=== PATIENT | male | born 1965 | race African-American/Black ===

== ENCOUNTER 2017-09-24 08:19 | Emergency (ER) | payer OTHER ==
--- OUTSIDE RECORDS SUMMARY | 2017-09-24 08:21 | XMS REPORT | Clinical Summary ---
:1965 Author Organization [facility] Address [address] [place] [address] Care Team Providers Name Role Phone Wade Zepeda DO Primary Care Provider Allergies No Known Allergies Current Medications Not on file Active Problems Problem Noted Date MDD (major depressive disorder), recurrent, severe, with psychosis 06/07/2016 Social History Tobacco Use Types Packs/Day Years Used Date Never Smoker Alcohol Use Drinks/Week oz/Week Comments Yes 12 Cans of beer 7.2 daily Sex Assigned at Date Recorded Not on file Last Filed Vital Signs Not on file Plan of Treatment Not on file Results Not on fileafter 09/23/2016 Insurance Payer Benefit Plan / Group Subscriber ID Type Phone Address AETNA AETNA HMO,POS,EPO, MC/EC xxxxxxxxx HMO CVCP CVCP AETNA xxxxxxxxx PPO [address] [facility], [address] [place] [address] Home: [address] [phone] [id number]
[2017-09-24 09:08] LABS: Absolute Lymphocytes (CBC) 1.5 K/uL (0.7-4.9); Absolute Monocytes 0.6 K/uL (0.1-1.3); Absolute Neutrophil 5.7 K/uL (1.8-8.0); Basophils % 0.5 % (0-1.3); Eosinophils % 0.4 % (0-4.4); Lymphocytes % 19.1 % (15.3-44.8); MCH 30.1 pg (27.0-35.0); MCV 88.7 fL (80-100); MPV 7.4 fL (7.6-11.3); Monocytes % 7.4 % (3.3-12.3); RBC Red Blood Cell Count 5.42 M/uL (4.33-5.43)
[2017-09-24] MEDS ORDERED: ONDANSETRON 4 MG/2 ML VIAL ONE (09:19)
[2017-09-24] MEDS ORDERED: FAMOTIDINE 20 MG/2 ML VIAL IV ONE (09:19)
[2017-09-24] MEDS ORDERED: NA CHLORIDE 0.9% 1,000 ML ONE (09:19)
[2017-09-24 09:30] LABS: Glomerular Filtration Rate > 60 mL/min (>60)
[2017-09-24 09:32] LABS: Potassium 3.4 mEq/L (3.6-5.0)
[2017-09-24 09:39] LABS: Albumin 4.6 g/dL (3.2-5.5); Bilirubin Direct 0.1 mg/dL (0-0.2); Magnesium 2.3 mg/dL (1.8-2.5); Protein, Total 8.3 g/dL (6.0-8.3)
[2017-09-24 10:05] LABS: Urine Blood TRACE (NEG); Urine Glucose NEGATIVE (NEG); Urine Protein 1+ (NEG); Urine Specific Gravity >1.030 (1.005-1.030); Urine pH 6.5 (5.0-7.0)
[2017-09-24 10:38] LABS: Urine Bacteria <20 /HPF (NONE SEEN); Urine Culture Reflex Order NOT NEEDED; Urine Mucus 3+ /HPF (NONE SEEN); Urine RBC <5 /HPF (NONE SEEN)
--- NOTE | 2017-09-24 11:05 | ER ---
Nurse's Notes [facility] Name: Riaz Nguyen Age: 52 yrs Sex: Male : 1965 Arrival Date: 09/24/2017 Time: 08:22 Bed 16 Private MD: Wade Zepeda H Diagnosis: Nausea and vomiting;Lower abdominal pain, unspecified Presentation: 09/24 08:30 Presenting complaint: Patient states: "I was here a few days ago for my stomach and I lk1 cant hold anything down. I got some pills, but they aren't helping. I have sharp pains in the left side of my stomach and I am starting to get dizzy.". Transition of care: patient was not received from another setting of care. Onset of symptoms was September 19, 2017. Care prior to arrival: None. 08:30 Method Of Arrival: Ambulatory lk1 08:30 Acuity: MATT 3 lk1 Triage Assessment: 08:32 General: Appears in no apparent distress. Behavior is calm, cooperative, appropriate lk1 for age. Pain: Complains of pain in left upper quadrant Pain currently is 8 out of 10 on a pain scale. GI: Reports diarrhea, nausea, vomiting. Historical: - Allergies: 08:32 No Known Allergies; lk1 - Home Meds: 08:53 aspirin 81 mg Oral chew 1 tab once daily [Active]; atorvastatin 10 mg Oral tab 1 tab hj once daily [Active]; Latuda 60 mg Oral tab [Active]; Nexium Oral once daily [Active]; Prilosec Oral once daily [Active]; sertraline 100 mg Oral tab 1.5 tabs once daily [Active]; trazodone 100 mg Oral tab 1 tab as needed [Active]; - PMHx: 08:32 Prostate Cancer; Hypertension; High Cholesterol; Depression; lk1 - PSHx: 08:32 prostectomy; lk1 - Immunization history:: Adult Immunizations up to date. - Social history:: Smoking status: Patient/guardian denies using tobacco. Screenin:51 Abuse screen: Denies threats or abuse. Denies injuries from another. Nutritional hj screening: No deficits noted. Tuberculosis screening: No symptoms or risk factors identified. Fall Risk None identified. Assessment: 08:50 General: Appears in no apparent distress. uncomfortable, Behavior is calm, cooperative, hj appropriate for age. Pain: Complains of pain in left upper quadrant and left lower quadrant. Neuro: Level of Consciousness is awake, alert, obeys commands, Oriented to person, place, time, situation. Cardiovascular: Capillary refill < 3 seconds Patient's skin is warm and dry. Respiratory: Airway is patent Respiratory effort is even, unlabored, Respiratory pattern is regular, symmetrical. GI: Bowel sounds present X 4 quads. Abd is soft. : No signs and/or symptoms were reported regarding the genitourinary system. EENT: No signs and/or symptoms were reported regarding the EENT system. Derm: No signs and/or symptoms reported regarding the dermatologic system. Musculoskeletal: No signs and/or symptoms reported regarding the musculoskeletal system. 09:17 Reassessment: Patient and/or family updated on plan of care and expected duration. Pain hj level reassessed. Patient is alert, oriented x 3, equal unlabored respirations, skin warm/dry/pink. awaiting results;. 10:36 Reassessment: tolerated PO challenge;. hj Vital Signs: 08:32 BP 119 / 88; Pulse 79; Resp 15; Temp 97.3(TE); Pulse Ox 98% on R/A; Weight 102.06 kg lk1 (R); Height 6 ft. 3 in. (190.50 cm) (R); Pain 8/10; 10:09 BP 120 / 85; Pulse 85; Resp 18; Pulse Ox 100% on R/A; hj 11:45 BP 130 / 82; Pulse 82; Resp 18; Pulse Ox 100% on R/A; hj 08:32 Body Mass Index 28.12 (102.06 kg, 190.50 cm) lk1 ED Course: 08:22 Patient arrived in ED. rg4 08:22 Wade Zepeda DO is Private Physician. rg4 08:31 Triage completed. lk1 08:32 Arm band placed on left wrist. lk1 08:35 Ravi Talamantes PA is PHCP. cp 08:35 Rodrick Jaramillo MD is Attending Physician. cp 08:39 Patrick Harry RN is Primary Nurse. hj 08:51 Patient has correct armband on for positive identification. Placed in gown. Bed in low hj position. Call light in reach. Side rails up X 1. 08:53 Initial lab(s) drawn, by ny, Urine collected:. Inserted saline lock: 22 gauge in left hj forearm, using aseptic technique. Blood collected. 09:05 Urine collected: clean catch specimen, cloudy. mh5 10:05 X-ray completed. Patient tolerated procedure well. Patient moved back from radiology. jb2 10:15 XRAY Abdomen Acute Series In Process Unspecified. EDMS 11:04 Corby Hedrick MD is Referral Physician. cp 11:45 No provider procedures requiring assistance completed. IV discontinued, intact, hj bleeding controlled, No redness/swelling at site. Pressure dressing applied. Administered Medications: 08:55 Drug: NS 0.9% 1000 ml Route: IV; Rate: 1 bolus; Site: left forearm; hj 11:46 Follow up: IV Status: Completed infusion hj 08:55 Drug: Zofran 4 mg Route: IVP; Site: left forearm; hj 09:20 Follow up: Response: No adverse reaction hj 08:55 Drug: Pepcid 20 mg Route: IVP; Site: left forearm; hj 09:20 Follow up: Response: No adverse reaction Outcome: 11:04 Discharge ordered by MD. cp 11:45 Discharged to home ambulatory. hj 11:45 Condition: stable 11:45 Discharge instructions given to patient, Instructed on discharge instructions, follow up and referral plans. medication usage, Demonstrated understanding of instructions, follow-up care, medications, Prescriptions given X 4. 11:48 Patient left the ED. Signatures: Dispatcher [employer] EDPR Angel Judd jb2 Patrick Harry RN RN Ravi Thorpe PA PA cp Kluge, Leah RN RN lk1 Jammie Alexander Maria 5
--- NOTE | 2017-09-24 11:05 | EDPHYS ---
Physician Documentation [facility] Name: Riaz Nguyen Age: 52 yrs Sex: Male : 1965 Arrival Date: 09/24/2017 Time: 08:22 Bed 16 Private MD: Wade Zepeda H ED Physician Rodrick Jaramillo HPI: 09/24 08:51 This 52 yrs old Black Male presents to ER via Ambulatory with complaints of Abdominal cp Pain. 08:51 The patient presents with abdominal pain in the left lower quadrant. Onset: The cp symptoms/episode began/occurred last week. Associated signs and symptoms: Pertinent positives: constipation, nausea, vomiting, left lower back pain. Historical: - Allergies: 08:32 No Known Allergies; lk1 - Home Meds: 08:53 aspirin 81 mg Oral chew 1 tab once daily [Active]; atorvastatin 10 mg Oral tab 1 tab hj once daily [Active]; Latuda 60 mg Oral tab [Active]; Nexium Oral once daily [Active]; Prilosec Oral once daily [Active]; sertraline 100 mg Oral tab 1.5 tabs once daily [Active]; trazodone 100 mg Oral tab 1 tab as needed [Active]; - PMHx: 08:32 Prostate Cancer; Hypertension; High Cholesterol; Depression; lk1 - PSHx: 08:32 prostectomy; lk1 - Immunization history:: Adult Immunizations up to date. - Social history:: Smoking status: Patient/guardian denies using tobacco. ROS: 09:00 Constitutional: Negative for body aches, chills, fever, poor PO intake. cp 09:00 Eyes: Negative for injury, pain, redness, and discharge. cp 09:00 ENT: Negative for injury, pain, and discharge, Cardiovascular: Negative for chest pain, cp palpitations, and edema, Respiratory: Negative for shortness of breath, cough, wheezing, and pleuritic chest pain. 09:00 Abdomen/GI: Positive for abdominal pain, constipation, Negative for diarrhea, black/tarry stool, rectal bleeding. 09:00 Back: Positive for pain at rest, of the left low back. 09:00 : Negative for urinary symptoms, testicular pain 09:00 Skin: Negative for cellulitis, rash. 09:00 All other systems are negative. Exam: 09:08 Constitutional: The patient appears in no acute distress, alert, awake, cp non-diaphoretic, non-toxic, well developed, well nourished. 09:08 Head/Face: Normocephalic, atraumatic. cp 09:08 Eyes: Periorbital structures: appear normal, Conjunctiva: normal, no exudate, no cp injection, Sclera: no appreciated abnormality. 09:08 ENT: External ear(s): are unremarkable, Nose: is normal, Mouth: Lips: moist, Oral mucosa: moist, Posterior pharynx: is normal, airway is patent, no erythema, no exudate, Voice: is normal. 09:08 Chest/axilla: Inspection: normal, Palpation: is normal, no crepitus, no tenderness. 09:08 Cardiovascular: Rate: normal, Rhythm: regular, Edema: is not appreciated, JVD: is not appreciated. 09:08 Respiratory: the patient does not display signs of respiratory distress, Respirations: normal, no use of accessory muscles, no retractions, no splinting, no tachypnea, labored breathing, is not present, Breath sounds: are clear throughout, no decreased breath sounds, no stridor, no wheezing. 09:08 Abdomen/GI: Inspection: abdomen appears normal, Bowel sounds: active, all quadrants, Palpation: soft, in all quadrants, moderate abdominal tenderness, in the left lower quadrant, rebound tenderness, is not appreciated, voluntary guarding, is elicited in the left lower quadrant, involuntary guarding, is not appreciated. 09:08 Back: pain, of the left low back. 09:08 Skin: cellulitis, is not appreciated, no rash present. Vital Signs: 08:32 BP 119 / 88; Pulse 79; Resp 15; Temp 97.3(TE); Pulse Ox 98% on R/A; Weight 102.06 kg lk1 (R); Height 6 ft. 3 in. (190.50 cm) (R); Pain 8/10; 10:09 BP 120 / 85; Pulse 85; Resp 18; Pulse Ox 100% on R/A; hj 11:45 BP 130 / 82; Pulse 82; Resp 18; Pulse Ox 100% on R/A; hj 08:32 Body Mass Index 28.12 (102.06 kg, 190.50 cm) lk1 MDM: 08:35 Patient medically screened. cp 09:00 Differential diagnosis: bowel obstruction, diverticulitis, gastritis, Ureterolithiasis, cp urinary tract infection. 11:00 Data reviewed: vital signs, nurses notes, old medical records, lab results, radiology cp report of CT abdomen/pelvis and notes from previous ED visit lab test result(s), radiologic studies, plain films. 11:00 Counseling: I had a detailed discussion with the patient and/or guardian regarding: the cp historical points, exam findings, and any diagnostic results supporting the discharge/admit diagnosis, lab results, radiology results, the need for outpatient follow up, a assistant health educator, to return to the emergency department if symptoms worsen or persist or if there are any questions or concerns that arise at home. 11:00 Response to treatment: the patient's symptoms have mildly improved after treatment, and cp as a result, I will discharge patient. Special discussion: Based on the patient's Hx, exam, and Dx evaluation, there is no indication for emergent surgery or inpatient Tx. It is understood by the patient/guardian that if the Sx's persist or worsen they need to return immediately for re-evaluation. 09/24 08:55 Order name: Amylase, Serum; Complete Time: 09:40 cp 09/24 08:55 Order name: Basic Metabolic Panel; Complete Time: 09:40 cp 09/24 10:44 Interpretation: Normal except: K 3.4; CL 99; GFR 86. cp 09/24 08:55 Order name: CBC with Diff; Complete Time: 09:27 cp 09/24 09:27 Interpretation: Normal except: MPV 7.4. cp 09/24 08:55 Order name: Creatinine for Radiology; Complete Time: 09:38 cp 09/24 08:55 Order name: Hepatic Function; Complete Time: 09:40 cp 09/24 08:55 Order name: Lipase; Complete Time: 09:40 cp 09/24 08:55 Order name: Urine Microscopic Only; Complete Time: 10:44 cp 09/24 08:55 Order name: IV Saline Lock; Complete Time: 08:57 cp 09/24 08:55 Order name: Magnesium; Complete Time: 09:40 cp 09/24 09:14 Order name: Urine Dipstick--Ancillary (enter results); Complete Time: 10:25 bd 09/24 10:25 Interpretation: Normal except: USPGR >1.030; UKET 1+; UBLD TRACE; UPROT 1+. cp 09/24 09:41 Order name: XRAY Abdomen Acute Series cp 09/24 08:55 Order name: Labs collected and sent; Complete Time: 08:57 cp 09/24 08:55 Order name: Urine Dipstick-Ancillary (obtain specimen); Complete Time: 08:57 cp 09/24 10:26 Order name: PO challenge; Complete Time: 10:29 cp Administered Medications: 08:55 Drug: NS 0.9% 1000 ml Route: IV; Rate: 1 bolus; Site: left forearm; hj 11:46 Follow up: IV Status: Completed infusion hj 08:55 Drug: Zofran 4 mg Route: IVP; Site: left forearm; hj 09:20 Follow up: Response: No adverse reaction hj 08:55 Drug: Pepcid 20 mg Route: IVP; Site: left forearm; hj 09:20 Follow up: Response: No adverse reaction Disposition: 14:36 Co-signature as Attending Physician, Rodrick Jaramillo MD. rn Disposition: 09/24/17 11:04 Discharged to Home. Impression: Nausea and vomiting, Lower abdominal pain, unspecified. - Condition is Stable. - Discharge Instructions: Abdominal Pain, Adult, Nausea and Vomiting. - Prescriptions for Bentyl 20 mg Oral Tablet - take 1 tablet by ORAL route every 6 hours As needed; 20 tablet. Pepcid 20 mg Oral Tablet - take 1 tablet by ORAL route every 12 hours for 10 days; 20 tablet. Phenergan 25 mg Rectal Suppository - insert 1 suppository by RECTAL route every 6 hours As needed; 12 suppository. promethazine 25 mg Oral Tablet - take 1 tablet by ORAL route every 6 hours As needed; 20 tablet. - Medication Reconciliation Form, Thank You Letter, Antibiotic Education, Prescription Opioid Use form. - Follow up: Corby Hedrick MD; When: 1 - 2 days; Reason: Recheck today's complaints. - Problem is new. - Symptoms have improved. Signatures: Dispatcher [employer] EDMS Rodrick Jaramillo MD MD rn Joaquin, Henry RN CAREN hj Ravi Talamantes PA PA cp Kluge, Leah RN RN lk1 Corrections: (The following items were deleted from the chart) 10:44 09:38 Normal except: K 3.4; CL 99. cp cp
--- NOTE | 2017-09-24 11:34 | RAD REPORT ---
EXAM DESCRIPTION: RAD - Abdomen Acute Series - 09/24/2017 10:15 am CLINICAL HISTORY: Constipation, abdominal pain, vomiting COMPARISON: [facility] July 2016, CT imaging September 22 FINDINGS: Lungs are clear. Heart size and pulmonary vasculature are normal. No pleural effusion, pne umothorax or other acute cardiopulmonary process seen. Bowel gas pattern is nonspecific. No bowel obstruction, free air or other acute findings. No suspicio us calcifications. No other suspicious for significant findings. IMPRESSION: No failure, infiltrate or other acute chest finding. Nonspecific bowel gas pattern with no obstruction, free air or other worrisome finding.
[2017-09-24 12:02] VITALS: O2SAT 100
[2017-09-24 12:03] VITALS: TEMP 97.3
[2017-09-24 12:05] VITALS: BP 130/82
== END 2017-09-24 11:48 | disposition home or self-care (01) ==
LOC: ER 08:19
DX: F32.9 Major depressive disorder, single episode, unspecified; I10 Essential (primary) hypertension; Z85.46 Personal history of malignant neoplasm of prostate; Z79.82 Long term (current) use of aspirin; E78.00 Pure hypercholesterolemia, unspecified; R10.32 Left lower quadrant pain
CPT/HCPCS: 36415; 74022; 80048; 80076; 81003; 81015; 82150; 83690; 83735; 85025; 96361; 96374; 96375; 99284; J2405; J7030

== ENCOUNTER 2019-08-07 08:28 | Observation (INO) | payer OTHER ==
[2019-08-07 09:37] LABS: Protime INR 1.14
[2019-08-07 09:38] LABS: Absolute Lymphocytes (CBC) 1.2 K/uL (0.7-4.9); Basophils % 0.5 % (0-1.3); Hematocrit 45.9 % (39.6-49.0); Lymphocytes % 15.1 % (15.3-44.8); MPV 7.8 fL (7.6-11.3); RBC Red Blood Cell Count 5.02 M/uL (4.33-5.43)
[2019-08-07 09:54] LABS: ALT/SGPT 39 U/L (12-78); AST/SGOT 34 U/L (15-37); Albumin 3.7 g/dL (3.4-5.0); Alkaline Phosphatase 75 U/L (45-117); BUN Blood Urea Nitrogen 16 mg/dL (7-18); Bicarbonate 25 mmol/L (21-32); Bilirubin Direct 0.1 mg/dL (0-0.2); Bilirubin Total 0.6 mg/dL (0.2-1.0); Glucose Level 101 mg/dL (74-106); NT PRO-BNP 6 pg/mL (<125); Potassium 3.7 mmol/L (3.5-5.1); Protein, Total 7.9 g/dL (6.4-8.2); Sodium Level 137 mmol/L (136-145); Troponin (Emerg Dept Use Only) < 0.02 ng/mL (0.0-0.045)
--- NOTE | 2019-08-07 10:05 | EDPHYS ---
Physician Documentation [facility] Name: Riaz Nguyen Age: 53 yrs Sex: Male : 1965 Arrival Date: 08/07/2019 Time: 08:29 Bed 2 Private MD: ED Physician Mikaela Israel HPI: 08/07 10:01 This 53 yrs old Black Male presents to ER via Ambulatory with complaints of Chest Pain, ma2 Shortness Of Breath, Cough. 10:02 The patient or guardian reports chest pain that is located primarily in the substernal ma2 area. Onset: acutely. Associated signs and symptoms: Pertinent negatives: cough, dizziness, lower extremity pain, lightheadedness. The chest pain is described as aching, a heaviness. Severity of pain: At its worst the pain was moderate in the emergency department the pain is unchanged. The patient has not experienced similar symptoms in the past. Historical: - Allergies: 08:42 No Known Allergies; iw - Home Meds: 08:42 aspirin 81 mg Oral chew 1 tab once daily [Active]; atorvastatin 10 mg Oral tab 1 tab iw once daily [Active]; losartan oral oral [Active]; - PMHx: 08:42 Depression; High Cholesterol; Hypertension; Prostate Cancer; iw - PSHx: 08:42 prostectomy; iw - Immunization history:: Adult Immunizations not up to date. - Coronavirus screen:: The patient has NOT traveled to [place], [place], or [place] in the past 14 days. Proceed with normal triage process as indicated. - Social history:: Patient/guardian denies using alcohol, street drugs, The patient lives with family, Smoking status: Patient denies any tobacco usage or history of. - Family history:: not pertinent. - Ebola Screening: : Patient negative for fever greater than or equal to 101.5 degrees Fahrenheit, and additional compatible Ebola Virus Disease symptoms Patient denies exposure to infectious person Patient denies travel to an Ebola-affected area in the 21 days before illness onset No symptoms or risks identified at this time. ROS: 10:02 Constitutional: Negative for fever, chills, and weight loss. ma2 10:02 All other systems are negative. Exam: 10:02 Constitutional: This is a well developed, well nourished patient who is awake, alert, ma2 and in no acute distress. Head/Face: Normocephalic, atraumatic. Eyes: Pupils equal round and reactive to light, extra-ocular motions intact. Lids and lashes normal. Conjunctiva and sclera are non-icteric and not injected. Cornea within normal limits. Periorbital areas with no swelling, redness, or edema. Neck: Trachea midline, no thyromegaly or masses palpated, and no cervical lymphadenopathy. Supple, full range of motion without nuchal rigidity, or vertebral point tenderness. No Meningismus. Chest/axilla: Normal chest wall appearance and motion. Nontender with no deformity. No lesions are appreciated. Cardiovascular: Regular rate and rhythm with a normal S1 and S2. No gallops, murmurs, or rubs. Normal PMI, no JVD. No pulse deficits. Respiratory: Lungs have equal breath sounds bilaterally, clear to auscultation and percussion. No rales, rhonchi or wheezes noted. No increased work of breathing, no retractions or nasal flaring. Abdomen/GI: Soft, non-tender, with normal bowel sounds. No distension or tympany. No guarding or rebound. No evidence of tenderness throughout. MS/ Extremity: Pulses equal, no cyanosis. Neurovascular intact. Full, normal range of motion. Neuro: Awake and alert, GCS 15, oriented to person, place, time, and situation. Cranial nerves II-XII grossly intact. Motor strength 5/5 in all extremities. Sensory grossly intact. Cerebellar exam normal. Normal gait. Vital Signs: 08:42 BP 126 / 90; Pulse 101; Resp 18 S; Temp 97.1; Pulse Ox 96% on R/A; Weight 108.86 kg; iw Height 6 ft. 3 in. (190.50 cm); Pain 7/10; 09:28 BP 113 / 87; Pulse 91; Resp 20; Pulse Ox 96% ; sv 10:52 BP 128 / 94; Pulse 89; Resp 21; Pulse Ox 95% on R/A; ah 11:40 BP 109 / 80; Pulse 88; Resp 19; Temp 97.9; Pulse Ox 94% on NC; ah 12:24 BP 114 / 5; ah 08:42 Body Mass Index 30.00 (108.86 kg, 190.50 cm) iw MDM: 08:45 Patient medically screened. ma2 10:02 Differential diagnosis: gastritis, gastroesophageal reflux disease (GERD), pleurisy, ma2 pneumonia, stable angina, unstable angina. HEART Score: History: Moderately Suspicious (1), ECG: Non specific repolarization disturbance / LBTB / PM (1), Age: > 45 and < 65 years (1), Risk Factors: > or = 3 Risk factors for atherosclerotic disease (2), Troponin: < or = 1 x Normal Limit (0), Total Score = 5. The patient was given aspirin in the Emergency Department. Data reviewed: vital signs, nurses notes. Data reviewed: lab test result(s), EKG, radiologic studies. Counseling: I had a detailed discussion with the patient and/or guardian regarding: the historical points, exam findings, and any diagnostic results supporting the discharge/admit diagnosis, the presence of at least one elevated blood pressure reading (>120/80) during this emergency department visit, the need for outpatient follow up. 08/07 08:54 Order name: Basic Metabolic Panel; Complete Time: 09:59 ma2 08/07 08:54 Order name: CBC with Diff; Complete Time: 09:59 ma2 08/07 08:54 Order name: LFT's; Complete Time: 09:59 ma2 08/07 08:54 Order name: Magnesium; Complete Time: 09:59 ma2 08/07 08:54 Order name: NT PRO-BNP; Complete Time: 09:59 ma08/07 08:54 Order name: PT-INR; Complete Time: 09:59 ma2 08/07 08:54 Order name: Troponin (emerg Dept Use Only); Complete Time: 09:59 ma2 08/07 08:54 Order name: XRAY Chest (1 view) ma2 08/07 08:54 Order name: EKG; Complete Time: 08:56 ma2 08/07 10:12 Order name: Flu ma2 08/07 11:02 Order name: Urine Dipstick--Ancillary (enter results) eb 08/07 11:05 Order name: Urine Dipstick-Ancillary EDMS 08/07 08:54 Order name: Cardiac monitoring; Complete Time: 09:02 ma2 08/07 08:54 Order name: EKG - Nurse/Tech; Complete Time: 09:02 ma2 08/07 08:54 Order name: IV Saline Lock; Complete Time: 09:20 ma2 08/07 08:54 Order name: Labs collected and sent; Complete Time: 09:21 [facility] 08/07 08:54 Order name: O2 Per Protocol; Complete Time: : [facility] 08/07 08:54 Order name: O2 Sat Monitoring; Complete Time: : [facility] Administered Medications: 10:07 Drug: AZITHromycin 500 mg Route: PO; 11:00 Follow up: Response: No adverse reaction sv 11:45 Follow up: Response: No adverse reaction ah 10:07 Drug: Aspirin Chewable Tablet 324 mg Route: PO; 11:00 Follow up: Response: No adverse reaction sv 12:24 Follow up: BP 114 / 5; Response: No adverse reaction Disposition: 08/07/19 10:04 Hospitalization ordered by Supriya Schwarz for Observation. Preliminary diagnosis is Chest pain, unspecified. - Bed requested for Telemetry/MedSurg (observation). - Status is Observation. ah - Condition is Stable. - Problem is new. - Symptoms are unchanged. Signatures: Dispatcher [employer] Blanca Sharp RN RN iw Alzahri, Mohammad, MD MD [facility] Ciarra Gee Amy, RN RN ah Verde, Stephanie RN Corrections: (The following items were deleted from the chart) 11:15 10:04 Hospitalization Ordered by Supriya Schwarz MD for Observation. Preliminary diagnosis eb is Chest pain, unspecified. Bed requested for Telemetry/MedSurg (observation). Status is Observation. Condition is Stable. Problem is new. Symptoms are unchanged. [facility] 11:32 11:15 08/07/2019 10:04 Hospitalization Ordered by Supriya Schwarz MD for Observation. eb Preliminary diagnosis is Chest pain, unspecified. Bed requested for Telemetry/MedSurg (observation). Status is Observation. Condition is Stable. Problem is new. Symptoms are unchanged. eb 12:26 11:32 08/07/2019 10:04 Hospitalization Ordered by Supriya Schwarz MD for Observation. ah Preliminary diagnosis is Chest pain, unspecified. Bed requested for Telemetry/MedSurg (observation). Status is Observation. Condition is Stable. Problem is new. Symptoms are unchanged. eb
--- NOTE | 2019-08-07 10:05 | ER ---
Nurse's Notes [facility] Name: Riaz gNuyen Age: 53 yrs Sex: Male : 1965 Arrival Date: 08/07/2019 Time: 08:29 Bed 2 Private MD: Diagnosis: Chest pain, unspecified Presentation: 08/07 08:39 Presenting complaint: Patient states: c/o non radiating midsternal chest pain since iw last night, pt has bad cough and SOB that started last night, feels tired, no fever, c/o burning pain with cough, pain in chest feels like tight burning pain, hx of mild heart attack 17 years ago. Transition of care: patient was not received from another setting of care. Onset of symptoms was August 06, 2019. Risk Assessment: Do you want to hurt yourself or someone else? Patient reports no desire to harm self or others. Initial Sepsis Screen: Does the patient meet any 2 criteria? No. Patient's initial sepsis screen is negative. Does the patient have a suspected source of infection? No. Patient's initial sepsis screen is negative. Care prior to arrival: None. 08:39 Method Of Arrival: Ambulatory iw 08:39 Acuity: MATT 2 iw Historical: - Allergies: 08:42 No Known Allergies; iw - Home Meds: 08:42 aspirin 81 mg Oral chew 1 tab once daily [Active]; atorvastatin 10 mg Oral tab 1 tab iw once daily [Active]; losartan oral oral [Active]; - PMHx: 08:42 Depression; High Cholesterol; Hypertension; Prostate Cancer; iw - PSHx: 08:42 prostectomy; iw - Immunization history:: Adult Immunizations not up to date. - Coronavirus screen:: The patient has NOT traveled to [place], [place], or [place] in the past 14 days. Proceed with normal triage process as indicated. - Social history:: Patient/guardian denies using alcohol, street drugs, The patient lives with family, Smoking status: Patient denies any tobacco usage or history of. - Family history:: not pertinent. - Ebola Screening: : Patient negative for fever greater than or equal to 101.5 degrees Fahrenheit, and additional compatible Ebola Virus Disease symptoms Patient denies exposure to infectious person Patient denies travel to an Ebola-affected area in the 21 days before illness onset No symptoms or risks identified at this time. Screenin:36 Abuse screen: Denies threats or abuse. Nutritional screening: No deficits noted. Tuberculosis screening: No symptoms or risk factors identified. Fall Risk None identified. Assessment: 08:58 General: Appears uncomfortable, Behavior is calm, cooperative, appropriate for age. Pain: Complains of pain in mid-sternal area Pain does not radiate. Pain currently is 7 out of 10 on a pain scale. Quality of pain is described as pressure, squeezing, Pain began 2-3 days ago. gradually getting worse Is intermittent, Alleviated by nothing. 08:58 Neuro: Level of Consciousness is awake, alert, obeys commands, Oriented to person, place, time, situation, Appropriate for age Support Architect are equal bilaterally Speech is normal, Cardiovascular: Reports chest pain, shortness of breath, Heart tones S1 S2 present Capillary refill < 3 seconds Patient's skin is warm and dry. Pulses are palpable in right radial artery, right dorsalis pedis artery, left radial artery and left dorsalis pedis artery Rhythm is sinus rhythm. Respiratory: Airway is patent Respiratory effort is even, Respiratory pattern is tachypnea Breath sounds are clear bilaterally. GI: Abdomen is non-distended, Bowel sounds present X 4 quads. Abd is soft and non tender X 4 quads. : No signs and/or symptoms were reported regarding the genitourinary system. Derm: Skin is intact, is healthy with good turgor, Skin is dry, Skin is pink, warm \T\ dry. normal, Skin temperature is warm. 10:00 Reassessment: Patient appears in no apparent distress at this time. Patient and/or family updated on plan of care and expected duration. Pain level reassessed. Patient is alert, oriented x 3, equal unlabored respirations, skin warm/dry/pink. 11:40 Reassessment: Attempted to call report, nurse unavailable. 11:49 Reassessment: Patient appears in no apparent distress at this time. Patient and/or family updated on plan of care and expected duration. Pain level reassessed. Patient is alert, oriented x 3, equal unlabored respirations, skin warm/dry/pink. Vital Signs: 08:42 BP 126 / 90; Pulse 101; Resp 18 S; Temp 97.1; Pulse Ox 96% on R/A; Weight 108.86 kg; iw Height 6 ft. 3 in. (190.50 cm); Pain 7/10; 09:28 BP 113 / 87; Pulse 91; Resp 20; Pulse Ox 96% ; sv 10:52 BP 128 / 94; Pulse 89; Resp 21; Pulse Ox 95% on R/A; ah 11:40 BP 109 / 80; Pulse 88; Resp 19; Temp 97.9; Pulse Ox 94% on NC; ah 12:24 BP 114 / 5; ah 08:42 Body Mass Index 30.00 (108.86 kg, 190.50 cm) iw ED Course: 08:29 Patient arrived in ED. as 08:41 Triage completed. iw 08:42 Arm band placed on. iw 08:45 Mikaela Israel MD is Attending Physician. ma2 08:59 EKG done, by alarm installation technician. reviewed by Mikaela Israel MD. at1 09:00 Missed attempt(s): 22 gauge in right antecubital area. Bleeding controlled, band aid ah applied, catheter tip intact. 09:00 Missed attempt(s): 22 gauge in right wrist. Bleeding controlled, band aid applied, ah catheter tip intact. 09:01 Janis Goins, RN is Primary Nurse. sv 09:02 Patient has correct armband on for positive identification. Placed in gown. Bed in low sv position. Call light in reach. interactive media marketing strategist on. Pulse ox on. NIBP on. 09:15 Missed attempt(s): 22 gauge in left hand. Bleeding controlled, band aid applied, tw2 catheter tip intact. Inserted saline lock: 22 gauge in left forearm, using aseptic technique. Blood collected. 09:25 XRAY Chest (1 view) In Process Unspecified. EDMS 10:04 Supriya Schwarz MD is Hospitalizing Provider. ma2 10:26 Flu Sent. ah 11:30 Awaiting bed assignment. sv 11:43 Urine Dipstick--Ancillary (enter results) Sent. sv 11:44 No provider procedures requiring assistance completed. Patient admitted, IV remains in sv place. intact. 11:44 Oxygen administration via nasal cannula \T\ 2L/min. sv Administered Medications: 10:07 Drug: AZITHromycin 500 mg Route: PO; ah 11:00 Follow up: Response: No adverse reaction sv 11:45 Follow up: Response: No adverse reaction ah 10:07 Drug: Aspirin Chewable Tablet 324 mg Route: PO; 11:00 Follow up: Response: No adverse reaction sv 12:24 Follow up: BP 114 / 5; Response: No adverse reaction Outcome: 10:04 Decision to Hospitalize by Provider. essence 11:48 Admitted to Tele accompanied by tech, via stretcher, room 411, with oxygen, with chart, sv Report called to Janis FABIAN 11:48 Condition: stable 11:48 Instructed on the need for admit. 12:26 Patient left the ED. Signatures: Dispatcher [employer] Nat Washington, RN RN Agnieszka Leyva Irene, RN RN iw Yasmin Coleman, distillery manager EKG Tat1 Valerie Marie RN RN tw2 Mikaela Israel MD MD ma2 Janis Goins, RN RN Corrections: (The following items were deleted from the chart) 09:35 08:58 Pain: Complains of pain in mid-sternal area Pain does not radiate. [facility]
[2019-08-07] MEDS ORDERED: ASPIRIN 81 MG CHEWABLE TABLET ONE (10:06)
[2019-08-07] MEDS ORDERED: AZITHROMYCIN 250 MG TAB ONE (10:07)
--- NOTE | 2019-08-07 10:49 | RAD REPORT ---
EXAM DESCRIPTION: RAD - Chest Single View - 08/07/2019 9:23 am CLINICAL HISTORY: CHEST PAIN Chest pain. COMPARISON: Abdomen Acute Series dated 09/24/2017; Abdomen 1 View (KUB) dated 07/19/2016; Chest Single View dated 07/18/2016; CHEST PA AND LAT 2 VIEW dated 03/10/2012 FINDINGS: Portable technique limits examination quality. Hazy lung opacities are present the left lung base likely representing small area of pneumonia/infilt rate. The lungs are otherwise clear. The heart is upper limit normal in size. No displaced fractures.
[2019-08-07 11:04] LABS: Urine Blood TRACE (NEG); Urine Glucose NEGATIVE (NEG); Urine Protein NEGATIVE (NEG)
[2019-08-07 12:27] VITALS: BMI 29.9
[2019-08-07] MEDS ORDERED: ACETAMINOPHEN 500 MG TAB PO PRN (12:27)
[2019-08-07] MEDS ORDERED: MORPHINE 2 MG/ML SYR IV PRN (12:27)
[2019-08-07] MEDS ORDERED: NITROGLYCERIN 0.4 MG/TAB SL PRN (12:27)
--- NOTE | 2019-08-07 15:08 | EKG ---
Test Date: 2019-08-07 Test Time: 08:47:29 [employer]: CRUZ MEASUREMENT RESULTS: Intervals: Rate: 91 DE: 158 QRSD: 142 QT: 374 QTc: 460 Thompson: P: 31 DE: 158 QRS: -30 T: 22 INTERPRETIVE STATEMENTS: Normal sinus rhythm Left axis deviation Right bundle branch block Abnormal ECG Compared to ECG 09/27/2017 14:48:57 no significant change from previous ECG Electronically Signed On 08-07-19 15:07:25 [employer] REP by Juventino Goins
--- NOTE | 2019-08-07 15:09 | ECHO ---
HEIGHT: 6 ft 3 in WEIGHT: 240 lb 0 oz DATE OF STUDY: 08/07/[address]: Supriya Schwarz MD 2-DIMENSIONAL: YES M.MODE: YES DOPPLER: YES COLOR FLOW: YES TDS: NO PORTABLE: NO DEFINITY: NO BUBBLE STUDY: NO DIAGNOSIS: CHEST PAIN CARDIAC HISTORY: CATHERIZATION: NO SURGERY: NO PROSTHETIC VALVE: NO PACEMAKER: NO MEASUREMENTS (cm) DIASTOLIC (NORMALS) SYSTOLIC (NORMALS) IVSd 1.2 (0.6-1.2) LA Diam 3.8 (1.9-4.0) LVEF 68% LVIDd 3.9 (3.5-5.7) LVIDs 2.5 (2.0-3.5) %FS 38% LVPWd 1.3 (0.6-1.2) Ao Diam 2.9 (2.0-3.7) 2 DIMENSIONAL ASSESSMENT: RIGHT ATRIUM: NORMAL LEFT ATRIUM: NORMAL RIGHT VENTRICLE: NORMAL LEFT VENTRICLE: NORMAL TRICUSPID VALVE: NORMAL MITRAL VALVE: NORMAL PULMONIC VALVE: NORMAL AORTIC VALVE: NORMAL PERICARDIAL EFFUSION: NONE AORTIC ROOT: NORMAL LEFT VENTRICULAR WALL MOTION: NORMAL. DOPPLER/COLOR FLOW: PHYSIOLOGIC TRICUSPID REGURGITATION. NORMAL RIGHT VENTRICULAR SYSTOLIC PRESSURE. COMMENTS: NORMAL 2D ECHO WITH DOPPLER. TECHNOLOGIST: SONNY BOYLE
--- NOTE | 2019-08-07 19:37 | CON ---
History Of Present Illness: Mr. Nguyen is 53. He says about 15 years ago he had a heart attack, but he was not given any treatments. He sees Dr. Courtney. Had a heart cath or a stent or any of the usu al things that are given to people post SC. He started coughing 3 days ago. He is coughing up phleg m. He did not have cold or flu symptoms before and every time he coughs, it hurts. It actually hurt s quite a bit. He was wincing in pain when he coughed. He asked for some antibiotics. His physicia n asked him to come to the hospital and since then a chest x-ray reveals left lung base pneumonia. T he patient has not had a fever. He does not have an elevated white blood cell count. All of his car diac enzymes are normal. His EKG shows right bundle-branch block. No other abnormality. It is unch anged from an EKG several years ago. The patient takes atorvastatin, losartan, and hydrochlorothiazi de for hypertension and dyslipidemia. He does not have diabetes. Allergies: HE HAS NO ALLERGIES. Social History: He uses no tobacco, rare alcohol. No illegal drugs. Medications: He is now receiving azithromycin and ceftriaxone. Physical Examination: General: He is 6 feet 3 inches, 240 pounds. Alert, oriented, pleasant, not in distress. Lungs: Clear. Cardiac: Within normal limits. Abdomen: Soft. Extremities: Normal. Impression: This is not an acute coronary syndrome. I doubt if he has any significant coronary hear t disease. Certainly, nothing unstable enough. We follow his enzymes look good and his pain is better by tomorrow. He could be discharged and follow up with Dr. Courtney who sees him every 6 month s or so. TANIYA/JEREMY Voice ID: [id number] Report ID: [id number]
[2019-08-07] MEDS: METOPROLOL TAR 25 MG TAB PO SCH (20:11)
[2019-08-07 20:37] VITALS: O2SAT 96
[2019-08-07] MEDS ORDERED: ATORVASTATIN 10 MG TAB PO SCH (21:00)
--- NOTE | 2019-08-08 02:47 | HP ---
Date of Admission: 08/07/2019 Primary Care Physician: Dr. Zepeda. Chief Complaint: Chest pain and cough. History Of Present Illness: Patient is a 53-year-old male with past medical history of hypertension, hyperlipidemia, major depressive disorder, history of prior AR, comes in with chest pain of 3 days' duration along with some cough. Patient does report ill contact. Patient does report some shortness of breath as well. No significant sputum production. Symptoms are constant, moderate, progressivel y worsening. Patient's initial workup revealed normal white blood cell count. A flu screen was nega tive. Initial troponin and EKG were negative. The patient was given aspirin in the ER as well as az ithromycin. When seen in the ER, he was awake, alert, oriented x3. Past Medical History: Hypertension, hyperlipidemia, major depressive disorder, history of AR, prosta te cancer. Surgical History: Prostate surgery recently, currently cancer-free; right enucleation of the eye. Allergies: NO KNOWN DRUG ALLERGIES. Medications: List reviewed. Social History: Patient denies any tobacco use. Does drink alcohol occasionally. No illicit drug u se. 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 Family History: Mom of bone cancer. Father of prostate cancer. Review of Systems: 10-point systems reviewed, negative except as per HPI. Physical Examination: Vital Signs: Blood pressure 126/90, respirations 18, O2 96% on room air, pulse 101, temperature 97.1 . General: Awake, alert, oriented x3, obese male, in some mild distress, ill appearing. HEENT: Normocephalic, atraumatic. Pupil on the left eye is round and responds to light. Patient brewer s enucleation of the right eye with prosthesis in place. Oropharynx is clear. Conjunctivae are anic teric. Neck: Supple. No JVD. Trachea midline. CV: S1, S2. Sinus tachycardia. Peripheral pulses present. Respiratory: Diminished breath sounds, especially on the left. Some rhonchi heard. No wheezing or stridor. Gastrointestinal: Abdomen is soft, nontender, nondistended. Positive bowel sounds. No guarding or rigidity. Extremities: No clubbing, cyanosis, or edema. No calf tenderness. Neuro: Cranial nerves 2 through 12 intact grossly. No focal neurological deficits. Speech is baudilio l. Skin: No rashes. Normal skin turgor. Psych: Mood is okay. Affect is full. Insight and judgment are good. Laboratory Data: Urine is negative. Sodium 137, potassium 3.7, chloride 105, CO2 of 25, BUN 16, cre atinine , glucose 101, calcium 9.2, magnesium 2. Troponin less than 0.02. WBC 7.8, H and H 15.1 and 45.9, platelets 215, neutrophils 72%. INR 1.14. Influenza screen is negative. Echocardi ogram shows EF 68%, physiological tricuspid regurg. EKG shows normal sinus rhythm rate of 91 with le ft axis deviation, right bundle-branch block. Chest x-ray shows hazy lung opacities present in the l eft lung base, representing small area of pneumonia, infiltrate. Lungs otherwise clear. Heart baudilio l in size. No displaced fractures. Assessment: 53-year-old male with: 1.Chest pain, likely atypical, likely from pneumonia and pleuritic chest pain. Echocardiogram shows ejection fraction of 68%. There is no wall motion abnormality. 2.Left lung base pneumonia. We will start on IV antibiotics. Obtain blood cultures and sputum cult ure. Patient's flu screen is negative. 3.Right bundle-branch block. Cardiology has been consulted. Patient likely has history of old myoc ardial infarction. 4.Essential hypertension, stable. We will resume home medications as appropriate. 5.Hyperlipidemia. Continue statin. 6.Major depressive disorder, stable. 7.History of myocardial infarction. 8.Deep venous thrombosis prophylaxis with Lovenox. Plan: Admit patient to med/surg, place as observation. /JEREMY Voice ID: [id number]
[2019-08-08] MEDS: CETIRIZINE HCL 5 MG TABLET PO PRN ×2 (04:18→09:24)
[2019-08-08 05:54] LABS: Absolute Lymphocytes (CBC) 1.2 K/uL (0.7-4.9); Basophils % 0.8 % (0-1.3); Hematocrit 43.9 % (39.6-49.0); Lymphocytes % 36.7 % (15.3-44.8); RBC Red Blood Cell Count 4.83 M/uL (4.33-5.43)
[2019-08-08 06:59] LABS: BUN Blood Urea Nitrogen 12 mg/dL (7-18); Bicarbonate 29 mmol/L (21-32); Glucose Level 103 mg/dL (74-106); HDL Cholesterol 42 mg/dL (40-60); LDL Cholesterol, Calculated 71 (<130); Potassium 3.7 mmol/L (3.5-5.1); Sodium Level 137 mmol/L (136-145)
[2019-08-08 08:06] LABS: Blood Morphology Comment NOT SEEN (NOT SEEN); Platelet Estimate ADEQ
[2019-08-08 09:00] VITALS: BP 105/70; TEMP 97.1
[2019-08-08] MEDS ORDERED: LOSARTAN POTASSIUM 50 MG TABLET PO SCH (09:00)
[2019-08-08] MEDS ORDERED: AZITHROMYCIN IV 500 MG in NA CHLORIDE 0.9% 250 ML IVPB SCH (09:00)
[2019-08-08] MEDS ORDERED: lisinopriL 10 MG TAB PO SCH (09:00)
[2019-08-08] MEDS ORDERED: ENOXAPARIN 40 MG/0.4 ML SQ SCH (09:00)
[2019-08-08] MEDS ORDERED: CEFTRIAXONE/SWI 1gm 1 GM/10 ML SYR IVP SCH (09:00)
[2019-08-08] MEDS ORDERED: SOD CHLORIDE 0.65% NASAL SPRAY NAS SCH (09:00)
[2019-08-08] MEDS ORDERED: ASPIRIN EC 81 MG TAB PO SCH (09:00)
[2019-08-08] MEDS: METOPROLOL TAR 25 MG TAB PO SCH (09:24)
--- NOTE | 2019-08-08 09:41 | PN ---
Date of Progress Note: 08/08/2019 Mr. Nguyen has normal enzymes, normal echocardiogram, normal lipid profile. His pain was highly atypi angel and he seems better now. I think it would be okay to let him be discharged home and as an outpat ient, he can have a nuclear stress test to make sure he does not have underlying coronary artery dise ase. I believe he is stable enough to be discharged today, August 08. TANIYA/JEREMY Voice ID: [id number] Report ID: [id number]
--- NOTE | 2019-08-09 01:32 | DS ---
Date of Discharge: 08/08/2019 Patient was seen and examined. Hearing Aid Assembly Supervisor: Reel Slitter, Dr. Goins. Procedures: None. Discharge Diagnoses: 1.Pleuritic chest pain, acute coronary syndrome ruled out. 2.Left lung base pneumonia, improving. 3.Right bundle branch block. 4.Essential hypertension, stable. 5.Mixed hyperlipidemia, on statin. 6.Major depressive disorder, stable. 7.History of previous myocardial infarction. 8.Obesity. Hospital Course: Patient is a 53-year-old male with past medical history of myocardial infarction, h ypertension, hyperlipidemia, depression, comes in with chest pain, cough, congestion. Chest x-ray sh owed pneumonia on the left base. Patient was started on IV antibiotics. ACS was also ruled out. Ca rdiology was consulted. Echocardiogram did not show any acute changes. He does have a right bundle branch block on his EKG. He will need to continue follow up with his primary general lithographic worker. Overall, patient did well. His cultures are still pending at this time. It is influenza screen and flu scre en were negative and sputum cultures grew respiratory yadira. He was afebrile, did not require any graham pplemental oxygen. He did not have any signs of sepsis. His white blood cell count was 3.4. Wilda eubanks was then discharged home in a stable condition. Activity: As tolerated. Medications: As per medication reconciliation list. Followup: Follow up with primary care physician in 2-3 days. Follow up with primary general lithographic worker in 4 weeks. Return to ER for worsening condition. Diet: Heart healthy. Activity: As tolerated. Physical Examination: General: Awake, alert, and oriented, no acute distress. CV: S1, S2. Respiratory: Moving air well bilaterally. Abdomen: Abdomen is soft, nontender, nondistended. Positive bowel sounds. Extremities: No clubbing, cyanosis, or edema. Neurologic: Nonfocal. SA/MODL Voice ID: [id number] Report ID: [id number]
== END 2019-08-08 11:22 | disposition home or self-care (01) ==
LOC: ER 08:28 → ERHOLD 11:18 → 4TH 11:49
PROVIDERS: ADMIT Family Medicine; ATTEND Family Medicine
DX: J18.9 Pneumonia, unspecified organism (principal); I45.10 Unspecified right bundle-branch block; I10 Essential (primary) hypertension; E78.2 Mixed hyperlipidemia; F32.9 Major depressive disorder, single episode, unspecified; I25.2 Old myocardial infarction; E66.9 Obesity, unspecified; Z68.30 Body mass index [BMI] 30.0-30.9, adult; Z85.46 Personal history of malignant neoplasm of prostate
CPT/HCPCS: 93005; 93306; 87040 ×2; 87070; 85025 ×2; 80048 ×2; 36415; 83735; 87205; 85610; 80061; 80076; 81003; 84484 ×3; 83880; 87804 ×2; 71045; 94760 ×2; 99285; J0456; J1650; J2270; J0696; J7030; G0378 ×3

== ENCOUNTER 2020-09-10 20:48 | Observation (INO) | payer OTHER ==
[2020-09-10 22:21] LABS: Absolute Lymphocytes (CBC) 0.9 K/uL (0.7-4.9); Basophils % 0.6 % (0-1.3); Hematocrit 42.6 % (39.6-49.0); Lymphocytes % 14.4 % (15.3-44.8); MPV 7.9 fL (7.6-11.3)
[2020-09-10 22:22] LABS: Protime INR 0.98
[2020-09-10] MEDS ORDERED: NA CHLORIDE 0.9% 1,000 ML ONE (22:29)
[2020-09-10] MEDS ORDERED: FENTANYL CITR 100 MCG/2 ML ONE (22:36)
[2020-09-10 22:38] LABS: ALT/SGPT 43 U/L (12-78); AST/SGOT 27 U/L (15-37); Albumin 3.5 g/dL (3.4-5.0); Alkaline Phosphatase 74 U/L (45-117); BUN Blood Urea Nitrogen 16 mg/dL (7-18); Bicarbonate 26 mmol/L (21-32); Bilirubin Direct < 0.1 mg/dL (0-0.2); Bilirubin Total 0.3 mg/dL (0.2-1.0); Glucose Level 126 mg/dL (74-106); Lipase 109 U/L (73-393); NT PRO-BNP 25 pg/mL (<125); Potassium 3.3 mmol/L (3.5-5.1); Protein, Total 7.2 g/dL (6.4-8.2); Sodium Level 139 mmol/L (136-145); Troponin (Emerg Dept Use Only) < 0.02 ng/mL (0.0-0.045)
[2020-09-10] MEDS ORDERED: ASPIRIN 81 MG CHEWABLE TABLET ONE (22:44)
[2020-09-10 23:42] LABS: Urine Blood TRACE (NEG); Urine Glucose NEGATIVE (NEG); Urine Protein TRACE (NEG); Urine Specific Gravity 1.025 (1.005-1.030)
--- NOTE | 2020-09-10 23:47 | ER ---
Nurse's Notes [facility] Name: Riaz [facility] Age: 54 yrs Sex: Male : 1965 Arrival Date: 09/10/2020 Time: 20:50 Bed 15 Private MD: Diagnosis: Chest pain, unspecified Presentation: 09/10 21:03 Chief complaint: Patient states: Had Federico covid vaccine yesterday. Started having ll1 fatigue, cough, weakness, sneezing, L CP, body aches, DIAMOND for 1 day. + diarrhea. Coronavirus screen: Client denies travel out of the [place] in the last 14 days. congestion, cough unrelated to allergies, fatigue, fever, headache, Client presents with at least one sign or symptom that may indicate coronavirus-19. Standard/surgical mask placed on the client. Ebola Screen: Patient denies travel to an Ebola-affected area in the 21 days before illness onset. Initial Sepsis Screen: Does the patient meet any 2 criteria? HR > 90 bpm. No. Patient's initial sepsis screen is negative. Does the patient have a suspected source of infection? Yes: Productive cough/pneumonia. Risk Assessment: Do you want to hurt yourself or someone else? Patient reports no desire to harm self or others. Onset of symptoms was September 10, 2020. 21:03 Method Of Arrival: Ambulatory ll1 21:03 Acuity: MATT 3 ll1 Historical: - Allergies: 21:05 No Known Allergies; ll1 - PMHx: 21:05 Depression; Hypertension; High Cholesterol; Prostate Cancer; Myocardial infarction; ll1 - PSHx: 21:05 prostectomy; ll1 - Immunization history:: Flu vaccine is not up to date. - Social history:: Smoking status: Patient denies any tobacco usage or history of. Screenin:02 Abuse screen: Denies threats or abuse. Denies injuries from another. Nutritional rv screening: No deficits noted. Tuberculosis screening: No symptoms or risk factors identified. Fall Risk None identified. Assessment: 22:30 General: Appears comfortable, Behavior is calm, cooperative. rv 22:30 Pain: Complains of pain in chest. Neuro: Level of Consciousness is awake, alert, obeys rv commands, Oriented to person, place, time, situation. Cardiovascular: Patient's skin is warm and dry. Rhythm is sinus rhythm. Respiratory: Airway is patent Respiratory effort is even, unlabored. Derm: Skin is intact. Vital Signs: 21:03 BP 113 / 91; Pulse 100; Resp 18; Temp 99.1; Pulse Ox 94% on R/A; Weight 106.14 kg; ll1 Height 6 ft. 3 in. (190.50 cm); Pain 6/10; 23:52 BP 122 / 84; Pulse 71; Resp 20; Pulse Ox 99% on 2 lpm NC; rv 21:03 Body Mass Index 29.25 (106.14 kg, 190.50 cm) ll1 ED Course: 20:50 Patient arrived in ED. rg4 21:05 Triage completed. ll1 21:06 Arm band placed on Patient placed in an exam room, on a stretcher. ll1 21:11 Ravi Talamantes PA is PHCP. cp 21:11 Rodrick Jaramillo MD is Attending Physician. cp 21:55 Juan Rush RN is Primary Nurse. rv 22:05 Inserted saline lock: 20 gauge in right antecubital area, using aseptic technique. rv Blood collected. 22:05 Initial lab(s) drawn, by me, sent to lab. First set of blood cultures drawn by me. rv 22:13 XRAY Chest (1 view) In Process Unspecified. EDMS 23:03 Patient has correct armband on for positive identification. campus monitor on. Pulse rv ox on. NIBP on. 23:46 Oneil Pittman is Hospitalizing Provider. cp 23:52 No provider procedures requiring assistance completed. rv 09/11 01:03 IV is patent, with fluids infusing freely, Patient admitted, IV remains in place. rv Administered Medications: 09/10 22:24 Drug: fentaNYL (PF) 25 mcg {Note: rass 0.} Route: IVP; Site: right antecubital; rv 23:51 Follow up: Response: No adverse reaction; Pain is unchanged, physician notified; RASS: rv Alert and Calm (0) 22:24 Drug: NS 0.9% 500 ml Route: IV; Rate: bolus; Site: right antecubital; rv 23:51 Follow up: IV Status: Completed infusion; IV Intake: 500ml rv 22:31 Drug: Aspirin Chewable Tablet 324 mg Route: PO; rv 23:51 Follow up: Response: No adverse reaction rv 22:55 Drug: NS 0.9% 1000 ml Route: IV; Rate: 1000 ml/hr; Site: right antecubital; rv 09/11 01:03 Follow up: IV Status: Completed infusion; IV Intake: 1000ml rv 09/10 23:49 Drug: morphine 2 mg Route: IVP; Site: right antecubital; rv 09/11 00:36 Drug: morphine 2 mg {Note: rass 0.} Route: IVP; Site: right antecubital; rv 01:00 Follow up: Response: No adverse reaction; Pain is decreased; RASS: Alert and Calm (0) rv 00:47 Drug: Potassium Effervescent Tablet 50 mEq Route: PO; rv 01:00 Follow up: Response: No adverse reaction rv Intake: 09/10 23:51 IV: 500ml; Total: 500ml. rv 09/11 01:03 IV: 1000ml; Total: 1500ml. rv Outcome: 09/10 23:47 Decision to Hospitalize by Provider. cp 09/11 01:03 Admitted to ER Hold. Please see [facility] for further documentation. rv Condition: good Instructed on the need for admit. 16:05 Patient left the ED. hb Signatures: Dispatcher [employer] EDMS Ravi Talamantes PA PA cp Lilliam Dale RN RN hb Garcia, Rubi rg4 Juan Rush RN RN rv Dane Mayen RN RN ll1
--- NOTE | 2020-09-10 23:47 | EDPHYS ---
Physician Documentation [facility] Name: Riaz Nguyen Age: 54 yrs Sex: Male : 1965 Arrival Date: 09/10/2020 Time: 20:50 Bed 15 Private MD: ED Physician Rodrick Jaramillo HPI: 09/10 22:00 This 54 yrs old Black Male presents to ER via Ambulatory with complaints of Flu cp Symptoms. 22:00 The patient or guardian reports chest pain that is located primarily in the anterior cp chest wall, left. 22:00 Onset: yesterday. The pain does not radiate. The chest pain is described as sharp. cp Duration: The patient or guardian reports a single episode, that is still ongoing. 22:00 Associated signs and symptoms: Pertinent positives: cough, fatigue, general weakness, cp sneezing, body aches, Pertinent negatives: abdominal pain, diaphoresis, lower extremity pain, lower extremity swelling. Patient reports having the [employer] COVID-19 vaccination yesterday. Historical: - Allergies: 21:05 No Known Allergies; ll1 - PMHx: 21:05 Depression; Hypertension; High Cholesterol; Prostate Cancer; Myocardial infarction; ll1 - PSHx: 21:05 prostectomy; ll1 - Immunization history:: Flu vaccine is not up to date. - Social history:: Smoking status: Patient denies any tobacco usage or history of. ROS: 22:10 Constitutional: Positive for body aches, chills, fatigue, Negative for fever, poor PO cp intake. 22:10 Eyes: Negative for injury, pain, redness, and discharge. cp 22:10 Cardiovascular: Positive for chest pain, Negative for edema, palpitations. 22:10 Abdomen/GI: Positive for nausea, diarrhea, Negative for abdominal pain, vomiting, constipation, black/tarry stool, rectal bleeding. 22:10 ENT: Negative for ear pain, sore throat, difficulty swallowing, difficulty handling cp secretions. 22:10 Respiratory: Positive for cough, Negative for shortness of breath, wheezing. cp 22:10 : Negative for urinary symptoms. 22:10 Skin: Negative for rash. 22:10 Neuro: Positive for headache, weakness, Negative for altered mental status. 22:10 All other systems are negative. Exam: 22:11 ECG was reviewed by the Attending Physician. cp 22:15 Constitutional: The patient appears in no acute distress, alert, awake, cp non-diaphoretic, non-toxic, well developed, well nourished. 22:15 Head/Face: Normocephalic, atraumatic. cp 22:15 Eyes: Periorbital structures: appear normal, Conjunctiva: normal, no exudate, no injection, Sclera: no appreciated abnormality, Lids and lashes: appear normal, bilaterally. 22:15 ENT: External ear(s): are unremarkable, Nose: is normal, Mouth: Lips: moist, Oral mucosa: moist, Posterior pharynx: Airway: no evidence of obstruction, patent. 22:15 Neck: ROM/movement: is normal, is supple, without pain, no range of motions limitations, no meningismus. 22:15 Chest/axilla: Inspection: normal, Palpation: is normal, no crepitus, no tenderness. 22:15 Cardiovascular: Rate: tachycardic, Rhythm: regular, Edema: is not appreciated, JVD: is not appreciated. 22:15 Respiratory: the patient does not display signs of respiratory distress, Respirations: normal, no use of accessory muscles, no retractions, labored breathing, is not present, Breath sounds: are clear throughout, no decreased breath sounds, no stridor, no wheezing. 22:15 Abdomen/GI: Inspection: abdomen appears normal, Bowel sounds: active, all quadrants, Palpation: abdomen is soft and non-tender, in all quadrants. 22:15 Back: pain, is absent, ROM is normal. 22:15 Skin: cellulitis, is not appreciated, no rash present. 22:15 Neuro: Orientation: to person, place \\T\\ time. Mentation: is normal, Cerebellar function: is grossly normal, Motor: moves all fours, strength is normal, Sensation: is normal. Vital Signs: 21:03 BP 113 / 91; Pulse 100; Resp 18; Temp 99.1; Pulse Ox 94% on R/A; Weight 106.14 kg; ll1 Height 6 ft. 3 in. (190.50 cm); Pain 6/10; 23:52 BP 122 / 84; Pulse 71; Resp 20; Pulse Ox 99% on 2 lpm NC; rv 21:03 Body Mass Index 29.25 (106.14 kg, 190.50 cm) ll1 MDM: 21:14 Patient medically screened. cp 22:00 Differential diagnosis: abnormal EKG, acute myocardial infarction, pleurisy, pneumonia, cp pneumothorax, pulmonary embolus, stable angina, unstable angina, reaction to vaccination. 23:40 Data reviewed: vital signs, nurses notes, lab test result(s), EKG, radiologic studies, cp plain films, I have discussed the patient's presentation/case with the attending Emergency Department Physician; and as a result, I will admit patient. Counseling: I had a detailed discussion with the patient and/or guardian regarding: the historical points, exam findings, and any diagnostic results supporting the discharge/admit diagnosis, lab results, radiology results. Physician consultation: Jordan LAWRENCE was called at 23:41, was contacted at 23:41, regarding admission, to the telemetry unit. patient's condition. 23:45 The patient was given aspirin in the Emergency Department. cp 09/10 21:35 Order name: Basic Metabolic Panel cp 09/10 21:35 Order name: CBC with Diff cp 09/10 21:35 Order name: LFT's cp 09/10 21:35 Order name: Magnesium cp 03 21:35 Order name: NT PRO-BNP; Complete Time: 22:52 cp 09/10 21:35 Order name: PT-INR; Complete Time: 22:52 cp 09/10 21:35 Order name: Troponin (emerg Dept Use Only); Complete Time: 22:52 cp 09/10 21:35 Order name: Lipase; Complete Time: 22:52 cp 09/10 21:35 Order name: Urine Microscopic Only; Complete Time: 00:07 cp 09/11 00:07 Interpretation: Normal except: URBC 5-10. cp 03/ 21:35 Order name: Procalcitonin; Complete Time: 22:54 cp 03/ 22:54 Interpretation: Within normal limits: Procalcitonin 0.05. cp 09/10 21:35 Order name: Lactate; Complete Time: 22:52 cp / 22:52 Interpretation: Abnormal: LAC 2.2. cp 09/10 21:35 Order name: Blood Culture Adult (2) cp 09/10 21:36 Order name: Basic Metabolic Panel; Complete Time: 22:52 EDMS 09/10 22:53 Interpretation: Normal except: K 3.3; GLUC 126; GFR 82. cp 09/10 21:36 Order name: CBC with Automated Diff; Complete Time: 22:52 EDMD 09/10 22:53 Interpretation: Normal except: LYM% 14.4. 09/10 21:35 Order name: XRAY Chest (1 view) 09/10 21:36 Order name: Liver (Hepatic) Function; Complete Time: 22:52 EDMS 09/10 22:55 Interpretation: Normal except: GLOB 3.7; A/G 0.9. 09/10 21:36 Order name: Magnesium; Complete Time: 22:52 EDMD 09/10 23:27 Order name: COVID-19 : Document "Date of Symptom Onset" if Symptomatic. 09/10 23:27 Order name: Influenza Screen (a \\T\\ B) 09/10 23:31 Order name: Urine Dipstick--Ancillary (enter results) [facility] 09/10 23:32 Order name: Urine Dipstick-Ancillary; Complete Time: 00:07 [facility] 09/11 00:07 Interpretation: Normal except: UBLD TRACE. 09/11 00:22 Order name: COVID-19/FLU A+B [facility] 09/11 01:24 Order name: Lactate Sepsis 2 HR Follow-up [facility] 09/11 03:13 Order name: T4 Free [facility] 09/11 03:13 Order name: Thyroid Stimulating Hormone [facility] 09/11 04:28 Order name: Troponin I [facility] 09/11 12:09 Order name: Troponin I [facility] 09/10 21:35 Order name: EKG; Complete Time: 21:37 09/10 21:35 Order name: Cardiac monitoring; Complete Time: 22:24 09/10 21:35 Order name: EKG - Nurse/Tech; Complete Time: 22:24 09/10 21:35 Order name: IV Saline Lock; Complete Time: 22:24 09/10 21:35 Order name: Labs collected and sent; Complete Time: 22:24 09/10 21:35 Order name: O2 Per Protocol; Complete Time: 22:24 09/10 21:35 Order name: O2 Sat Monitoring; Complete Time: 22:24 09/10 21:35 Order name: Urine Dipstick-Ancillary (obtain specimen); Complete Time: 23:52 09/11 00:28 Order name: CONS Physician Consult EDMS EC:11 Rate is 86 beats/min. Rhythm is regular. IL interval is normal. QRS interval is cp prolonged at 154 msec. QT interval is normal. T waves are Inverted in leads aVL, aVR. Interpreted by me. Reviewed by me. Administered Medications: 22:24 Drug: fentaNYL (PF) 25 mcg {Note: rass 0.} Route: IVP; Site: right antecubital; rv 23:51 Follow up: Response: No adverse reaction; Pain is unchanged, physician notified; RASS: rv Alert and Calm (0) 22:24 Drug: NS 0.9% 500 ml Route: IV; Rate: bolus; Site: right antecubital; rv 23:51 Follow up: IV Status: Completed infusion; IV Intake: 500ml rv 22:31 Drug: Aspirin Chewable Tablet 324 mg Route: PO; rv 23:51 Follow up: Response: No adverse reaction rv 22:55 Drug: NS 0.9% 1000 ml Route: IV; Rate: 1000 ml/hr; Site: right antecubital; rv 09/11 01:03 Follow up: IV Status: Completed infusion; IV Intake: 1000ml rv 09/10 23:49 Drug: morphine 2 mg Route: IVP; Site: right antecubital; rv 09/11 00:36 Drug: morphine 2 mg {Note: rass 0.} Route: IVP; Site: right antecubital; rv 01:00 Follow up: Response: No adverse reaction; Pain is decreased; RASS: Alert and Calm (0) rv 00:47 Drug: Potassium Effervescent Tablet 50 mEq Route: PO; rv 01:00 Follow up: Response: No adverse reaction rv Disposition: 09/10/20 23:47 Hospitalization ordered by Oneil Pittman for Observation. Preliminary diagnosis is Chest pain, unspecified. - Bed requested for [facility] ER HOLD. - Status is Observation. hb - Condition is Stable. - Problem is new. - Symptoms have improved. Addendum: 09/19/2020 07:04 Co-signature as Attending Physician, Rodrick Jaramillo MD. r n Signatures: Dispatcher [employer] EDMD Courtney Pike RN RN Rodrick Jaramillo MD MD rn Page, Corey, PA PA cp Baxter, Heather RN CAREN Juan Rush RN RN rv Faheem, Lynsay, RN RN ll1 Corrections: (The following items were deleted from the chart) 09/10 23:39 23:28 CORONAVIRUS ordered. EDMD EDMS 23:40 23:28 Influenza Screen (A ordered. EDMD EDMS 09/11 00:03 09/10 23:47 Hospitalization Ordered by Oneil Pittman for Observation. Preliminary mw diagnosis is Chest pain, unspecified. Bed requested for Telemetry/MedSurg (observation). Status is Observation. Condition is Stable. Problem is new. Symptoms have improved. cp 09/11 16:05 00:03 09/10/2020 23:47 Hospitalization Ordered by Oneil Pittman for Observation. hb Preliminary diagnosis is Chest pain, unspecified. Bed requested for [facility] ER HOLD. Status is Observation. Condition is Stable. Problem is new. Symptoms have improved. mw 09/12 13:50 09/10 22:10 Constitutional: Positive for body aches, Negative for fever, poor PO cp intake, cp 09/12 13:50 09/10 22:10 Abdomen/GI: Negative for abdominal pain, vomiting, diarrhea, constipation, cp black/tarry stool, rectal bleeding, cp
[2020-09-10 23:51] LABS: Urine Bacteria <20 /HPF (NONE SEEN)
[2020-09-11] MEDS ORDERED: MORPHINE 4 MG/ML SYR ONE (00:02)
[2020-09-11] MEDS ORDERED: NA CHLORIDE 0.9% 1,000 ML ONE (00:02)
[2020-09-11 00:22] LABS: SARS-COV-2 RT PCR NEGATIVE (NEGATIVE)
[2020-09-11] MEDS ORDERED: POTASSIUM 25 MEQ EFFERV TAB ONE (01:01)
[2020-09-11] MEDS ORDERED: NITROGLYCERIN 0.4 MG/TAB SL PRN (01:06)
[2020-09-11] MEDS ORDERED: MORPHINE 2 MG/ML SYR IV PRN (01:06)
[2020-09-11] MEDS ORDERED: ACETAMINOPHEN 500 MG TAB PO PRN (01:06)
[2020-09-11] MEDS ORDERED: ONDANSETRON 4 MG/2 ML VIAL IV PRN (01:06)
[2020-09-11 01:27] VITALS: BMI 29.2
[2020-09-11 03:13] LABS: Thyroid Stimulating Hormone 2.48 uIU/mL (0.360-3.740)
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
[2020-09-11 07:54] VITALS: O2SAT 97
[2020-09-11] MEDS ORDERED: METOPROLOL TAR 50 MG TAB ONE (08:40)
[2020-09-11] MEDS ORDERED: ENOXAPARIN 40 MG/0.4 ML SQ ONE (08:41)
[2020-09-11] MEDS ORDERED: HYDROCORTISONE SUC 100 MG INJ IV ONE (08:53)
[2020-09-11] MEDS ORDERED: ENOXAPARIN 40 MG/0.4 ML SQ SCH (09:00)
[2020-09-11] MEDS ORDERED: METOPROLOL TAR 50 MG TAB PO SCH ×2 (09:00)
--- NOTE | 2020-09-11 10:22 | EKG ---
Test Date: 2020-09-10 Test Time: 21:59:07 Cylinder Grinder: RV MEASUREMENT RESULTS: Intervals: Rate: 86 TN: 200 QRSD: 154 QT: 402 QTc: 481 Twilight: P: 30 TN: 200 QRS: -32 T: 57 INTERPRETIVE STATEMENTS: Normal sinus rhythm Left axis deviation Right bundle branch block Voltage criteria for left ventricular hypertrophy Cannot rule out Septal infarct, age undetermined Abnormal ECG Compared to ECG 08/07/2019 08:47:29 Left ventricular hypertrophy now present Myocardial infarct finding now present Electronically Signed On 09-11-20 10:21:18 CDT by Abilio Chaudhari
--- NOTE | 2020-09-11 10:28 | RAD REPORT ---
EXAM DESCRIPTION: RAD - Chest Single View - 09/10/2020 10:13 pm CLINICAL HISTORY: CHEST PAIN COMPARISON: Portable August 2019 TECHNIQUE: AP portable chest image was obtained 09/10/2020 10:13 pm . FINDINGS: Lungs are clear. Heart and vasculature are normal. No measurable pleural effusion and no p neumothorax. No acute bony abnormality seen. No acute aortic findings suspected. IMPRESSION: No acute cardiopulmonary process. No significant change from comparison study.
[2020-09-11] MEDS ORDERED: HYDROCORTISONE SUC 100 MG INJ ONE (11:27)
[2020-09-11 12:10] VITALS: BP 130/88; TEMP 98.1
--- NOTE | 2020-09-12 12:23 | CON ---
Date of Consultation: 09/11/2020 Reason For Consultation: Atypical chest pain. History Of Present Illness: Mr. Nguyen is a 54-year-old white male who has had a history of coronary artery disease many years ago, but no stent placed, has had a history of dyslipidemia, hyp ertension and depression. He had a COVID shot yesterday and came in with left shoulder pain radiatin g to the back and anterior chest with sharp, stabbing. No nausea, vomiting, diaphoresis, PND, orthop glenn, pedal edema, palpitations, or syncope. Pain was not exertional, not related to food, body posit ion or time of the day, . Past Medical History: As stated above. Allergies: NONE. Review of Systems: Negative. Social History: Negative. Family History: Negative. Medications: Lipitor, lisinopril, and hydrochlorothiazide. Physical Examination: Vital Signs: Stable, afebrile. HEENT: Negative. Neck: Supple with no bruit. Chest: Clear to auscultation and percussion. Cardiac: Revealed a regular rhythm and rate. No murmurs, gallops, or rubs. Abdomen: Benign. Extremities: Revealed no clubbing, cyanosis, or edema. Diagnostic Data: All normal. Impression And Plan: 1.Atypical chest pain, most likely musculoskeletal or pleuritic. No need for any extensive cardiac workup at this point. 2.Hypertension. 3.Dyslipidemia. 4.Depression. 5.History of coronary artery disease he sees Dr. Courtney and apparently has had normal ca rdiac workup recently. I am very comfortable Mr. Nguyen going home in the near future, hopefully toda y, and he will see and Dr. Courtney in the near future. No change in medical therapy. LALITHA/MODL Voice ID: [id number] Report ID: [id number]
--- NOTE | 2020-09-27 02:06 | P.DS ---
Discharge Date: 09/11/20 Disposition: ROUTINE DISCHARGE Discharge Condition: GOOD Reason for Admission: chest pain rule out Consultations: Glove Cutter Brief History of Present Illness: Mr. Nguyen is a 54 yo male with HTN, HLD, and h/o [place] 15 years ago here today for chest pain, flu like symptoms and weakness. Yesterday he received the COVID vaccine. Today while he was at work, he had left sided intermittent chest pain that started as a 4/10 and worsened to an 8/10. He reports the pain feels like pressure. Pain does not radiate and last for 30 minutes at at time. The pain is reproducible on palpation. Additionally, he has had chills, night sweats, sneezing, SOB, and weakness beginning after the vaccine. He had diarrhea twice today. Denies cough. Tested negative for COVID today. Hospital Course: Patient was ruled out for acute coronary syndrome. Patient was seen by cardiology and will follow up with an outpatient. Continue with further testing as an outpatient. Return to the Emergency room if his chest pain worsens. Vital Signs/Physical Exam: Temp Pulse Resp BP Pulse Ox 98.1 F 74 18 130/88 95 09/11/20 12:00 09/11/20 12:00 09/11/20 12:00 09/11/20 12:00 09/11/20 12:00 General: Alert, In no apparent distress, Oriented x3 Laboratory Data at Discharge: WBC 6.00 K/uL (4.3-10.9) 09/10/20 22:05 Hgb 14.1 g/dL (13.6-17.9) 09/10/20 22:05 Hct 42.6 % (39.6-49.0) 09/10/20 22:05 Plt Count 236 K/uL (152-406) 09/10/20 22:05 PT 11.3 SECONDS (9.5-12.5) 09/10/20 22:05 INR 0.98 09/10/20 22:05 Sodium 139 mmol/L (136-145) 09/10/20 22:05 Potassium 3.3 mmol/L (3.5-5.1) L 09/10/20 22:05 BUN 16 mg/dL (7-18) 09/10/20 22:05 Creatinine 1.13 mg/dL (0.55-1.3) 09/10/20 22:05 Glucose 126 mg/dL (74-106) H 09/10/20 22:05 Magnesium 2.0 mg/dL (1.8-2.4) 09/10/20 22:05 Total Bilirubin 0.3 mg/dL (0.2-1.0) 09/10/20 22:05 AST 27 U/L (15-37) 09/10/20 22:05 ALT 43 U/L (12-78) 09/10/20 22:05 Alkaline Phosphatase 74 U/L (45-117) 09/10/20 22:05 Troponin I < 0.02 ng/mL (0.0-0.045) 09/11/20 11:29 Lipase 109 U/L (73-393) 09/10/20 22:05 Home Medications: RX: Atorvastatin Calcium [Lipitor*] 1 tab PO DAILY 04/15/14 RX: Losartan Potassium 1 tab PO DAILY 08/07/19 RX: hydroCHLOROthiazide [Hydrochlorothiazide] 1 tab PO DAILY 08/07/19 Physician Discharge Instructions: -OK TO DC IV AND DC HOME -FOLLOW-UP WITH PCP IN 1-2 WEEKS -FOLLOW-UP WITH CARDIOLOGY IN 1-2 WEEKS -PLEASE MAKE SURE ALL DIAGNOSTIC STUDIES ARE AVAILABLE AND HAVE BEEN REVIEWED WITH PATIENT PRIOR TO DISCHARGE -RETURN TO THE ER IF Symptoms worsen -CALL DR. FARFAN AT [phone] IF ANY QUESTIONS REGARDING HOSPITAL STAY -PLEASE CALL THE FLOOR AT [phone] IF ANY MEDICATION OR NURSING QUESTIONS Diet: AHA Activity: Fall precautions Followup: Abilio Chaudhari MD [ACTIVE - CAN ADMIT] - Wade Zepeda DO, DO [Primary Care Provider] - Time spent managing pt's care (in minutes): 35
== END 2020-09-11 16:05 | disposition home or self-care (01) ==
LOC: ER 20:48 → ERHOLD 09-11 00:30
PROVIDERS: ADMIT Hospitalist; ATTEND Hospitalist
DX: R07.89 Other chest pain (principal); I10 Essential (primary) hypertension; I25.10 Atherosclerotic heart disease of native coronary artery without angina pectoris; E78.00 Pure hypercholesterolemia, unspecified; K21.9 Gastro-esophageal reflux disease without esophagitis; F32.9 Major depressive disorder, single episode, unspecified; I25.2 Old myocardial infarction; E78.5 Hyperlipidemia, unspecified; Z20.822 Contact with and (suspected) exposure to COVID-19; Z85.46 Personal history of malignant neoplasm of prostate; Z90.79 Acquired absence of other genital organ(s); Z80.42 Family history of malignant neoplasm of prostate; Z80.8 Family history of malignant neoplasm of other organs or systems
CPT/HCPCS: 96361; 93005; 87040 ×2; 85025; 80048; 36415; 83735; 85610; 80076; 83605 ×2; 84443; 84484 ×3; 84439; 83690; 84145; 83880; 0240U; 71045; 94760; 96375; 96374; 99285; J1650; J3010; J7030; J1720; 81003; 81015; G0378

== ENCOUNTER 2021-01-19 04:20 | Emergency (ER) | payer OTHER ==
--- NOTE | 2021-01-19 07:25 | EDPHYS ---
Physician Documentation [facility] Name: Riaz Nguyen Age: 55 yrs Sex: Male : 1965 Arrival Date: 01/19/2021 Time: 04:23 Bed 15 Private MD: Wade Zepeda H ED Physician Rodrick Jaramillo HPI: 01/19 05:32 This 55 yrs old Black Male presents to ER via Ambulatory with complaints of fever, hot rn and cold chills. 05:32 The patient reports fever, not measured (subjective). Onset: The symptoms/episode rn began/occurred this morning. Modifying factors: The patient has had contact with sick co-worker(s). Associated signs and symptoms: Pertinent positives: chills, diarrhea, myalgias, Pertinent negatives: abdominal pain, altered mental status, arthralgias, chest pain, cough, headache, hemoptysis, runny nose, skin rash, shortness of breath, sore throat, swelling, vomiting. Severity of symptoms: At their worst the symptoms were mild in the emergency department the symptoms have improved. The patient has not experienced similar symptoms in the past. The patient has not recently seen a physician. Patient reports woke up with subjective fever, chills, sweating. States was exposed to several coworkers with cough and congestion recently. Patient had Federico \T\ Federico vaccine back in August. Otherwise patient feels okay denies any headache sore throat, congestion, cough, shortness of breath, abdominal pain, nausea or vomiting. Does report mild diarrhea that is nonbloody. No urinary symptoms. Historical: - Allergies: 04:48 No Known Allergies; em - PMHx: 04:48 Depression; High Cholesterol; Hypertension; Myocardial infarction; Prostate Cancer; em - PSHx: 04:48 prostate; em - Immunization history:: Adult Immunizations up to date. - Social history:: Smoking status: Patient denies any tobacco usage or history of. - Family history:: not pertinent. - Hospitalizations: : No recent hospitalization is reported. ROS: 05:32 Constitutional: Positive for fever and chills Eyes: Negative for injury, pain, redness, rn and discharge, ENT: Negative for injury, pain, and discharge, Neck: Negative for injury, pain, and swelling, Cardiovascular: Negative for chest pain, palpitations, and edema, Respiratory: Negative for shortness of breath, cough, wheezing, and pleuritic chest pain, Abdomen/GI: Negative for abdominal pain, nausea, vomiting, and constipation, Back: Negative for injury and pain, : Negative for injury, bleeding, discharge, and swelling, MS/Extremity: Negative for injury and deformity, Skin: Negative for injury, rash, and discoloration, Neuro: Negative for headache, numbness, tingling, and seizure. Exam: 05:32 Constitutional: This is a well developed, well nourished patient who is awake, alert, rn and in no acute distress. Head/Face: Normocephalic, atraumatic. Eyes: Periorbital areas with no swelling, redness, or edema. ENT: Mucous membranes moist. No stridor Cardiovascular: Regular rate and rhythm . No pulse deficits. Respiratory: Speaking full sentences, unlabored. No increased work of breathing, no retractions or nasal flaring. Abdomen/GI: Soft, non-tender Skin: Warm, dry MS/ Extremity: Pulses equal, no cyanosis. Neuro: Awake and alert, GCS 15 Vital Signs: 04:46 BP 129 / 93; Pulse 69; Resp 16; Temp 97.0; Pulse Ox 100% on R/A; Weight 109.32 kg; em Height 6 ft. 3 in. (190.50 cm); Pain 3/10; 07:40 Pulse Ox 100% on R/A; tw2 04:46 Body Mass Index 30.12 (109.32 kg, 190.50 cm) em MDM: 04:52 Patient medically screened. rn 07:23 Data reviewed: vital signs, nurses notes. Counseling: I had a detailed discussion with nakia the patient and/or guardian regarding: the historical points, exam findings, and any diagnostic results supporting the discharge/admit diagnosis, the need for outpatient follow up, to return to the emergency department if symptoms worsen or persist or if there are any questions or concerns that arise at home. ED course: Patient is alert nontoxic in appearance in the ED. vital signs are within normal limits. Advised to follow-up with PCP and otherwise given strict return precautions. Patient understood and agrees with plan of care.. 01/19 04:51 Order name: Flu; Complete Time: 06:53 em 01/19 07:08 Order name: SARS-COV-2 RT PCR; Complete Time: 07:16 EDMS Administered Medications: No medications were administered Disposition Summary: 01/19/21 07:25 Discharge Ordered Location: Home [facility] Problem: new jmm Symptoms: have improved jmm Condition: Stable jmm Diagnosis - Fever, unspecified jmm Followup: rn - With: Private Physician - When: As needed - Reason: Recheck today's complaints, Re-evaluation by your physician Discharge Instructions: - Discharge Summary Sheet rn - Fever, Adult rn Forms: - Medication Reconciliation Form jm - Thank You Letter jmm - Antibiotic Education jmm - Prescription Opioid Use m - Work release form tw2 Signatures: Dispatcher [employer] EDMS Rodolfo Pruitt PA PA jmm Munoz, Edgar RN RN Rodrick Dillard MD MD lead burner supervisor: (The following items were deleted from the chart) 05:07 04:51 CORONAVIRUS+LAB.BRZ ordered. EDVA EDMS
--- NOTE | 2021-01-19 07:25 | ER ---
Nurse's Notes [facility] Name: Riaz Nguyen Age: 55 yrs Sex: Male : 1965 Arrival Date: 01/19/2021 Time: 04:23 Bed 15 Private MD: Wade Zepeda H Diagnosis: Fever, unspecified Presentation: 01/19 04:46 Chief complaint: Patient states: body aches, fever, chills and colds sweats, would like em a covid test because several people at work were coughing. Coronavirus screen: Client presents with at least one sign or symptom that may indicate coronavirus-19. Standard/surgical mask placed on the client. Provider contacted for isolation considerations. Ebola Screen: Patient negative for fever greater than or equal to 101.5 degrees Fahrenheit, and additional compatible Ebola Virus Disease symptoms Patient denies exposure to infectious person. Patient denies travel to an Ebola-affected area in the 21 days before illness onset. No symptoms or risks identified at this time. Initial Sepsis Screen: Does the patient meet any 2 criteria? No. Patient's initial sepsis screen is negative. Does the patient have a suspected source of infection? No. Patient's initial sepsis screen is negative. Risk Assessment: Do you want to hurt yourself or someone else? Patient reports no desire to harm self or others. Onset of symptoms was January 19, 2021. 04:46 Method Of Arrival: Ambulatory em 04:46 Acuity: MATT 4 em Historical: - Allergies: 04:48 No Known Allergies; em - PMHx: 04:48 Depression; High Cholesterol; Hypertension; Myocardial infarction; Prostate Cancer; em - PSHx: 04:48 prostate; em - Immunization history:: Adult Immunizations up to date. - Social history:: Smoking status: Patient denies any tobacco usage or history of. - Family history:: not pertinent. - Hospitalizations: : No recent hospitalization is reported. Screenin:52 Abuse screen: Denies threats or abuse. Nutritional screening: No deficits noted. em Tuberculosis screening: No symptoms or risk factors identified. Fall Risk None identified. Assessment: 04:52 General: Appears in no apparent distress. comfortable, Behavior is calm, cooperative, em appropriate for age, Reports chills for 12-24 hours, fever for 12-24 hours, feeling ill for 12-24 hours, fatigue for 12-24 hours. Pain: Complains of pain in abdomen Pain currently is 3 out of 10 on a pain scale. Neuro: Level of Consciousness is awake, alert, obeys commands, Oriented to person, place, time, situation, Appropriate for age. Cardiovascular: Capillary refill < 3 seconds Patient's skin is warm and dry. Respiratory: Airway is patent Respiratory effort is even, unlabored, Respiratory pattern is regular, symmetrical, Denies cough. GI: Abdomen is flat. Derm: Skin is intact, is healthy with good turgor, Skin is pink, warm \T\ dry. Musculoskeletal: Capillary refill < 3 seconds, Range of motion: intact in all extremities. 07:21 Reassessment: provider at bedside at this time. tw2 07:40 Reassessment: Patient appears in no apparent distress at this time. No changes from tw2 previously documented assessment. Patient and/or family updated on plan of care and expected duration. Pain level reassessed. Patient is alert, oriented x 3, equal unlabored respirations, skin warm/dry/pink. Vital Signs: 04:46 BP 129 / 93; Pulse 69; Resp 16; Temp 97.0; Pulse Ox 100% on R/A; Weight 109.32 kg; em Height 6 ft. 3 in. (190.50 cm); Pain 3/10; 07:40 Pulse Ox 100% on R/A; tw2 04:46 Body Mass Index 30.12 (109.32 kg, 190.50 cm) em ED Course: 04:23 Patient arrived in ED. es 04:23 Wade Zepeda DO is Private Physician. es 04:48 Triage completed. em 04:48 Arm band placed on. em 04:52 Rodrick Jaramillo MD is Attending Physician. rn 04:52 Patient has correct armband on for positive identification. Bed in low position. em 04:52 No provider procedures requiring assistance completed. Patient did not have IV access em during this emergency room visit. 05:05 Lorri Lucero, RN is Primary Nurse. bs2 05:06 Flu Sent. bs2 06:19 Primary Nurse role handed off by Lorri Lucero, RN mw2 06:42 Lorri Lucero RN is Primary Nurse. bs2 06:57 Rodolfo Pruitt PA is PHCP. nakia 07:18 Primary Nurse role handed off by Lorri Lucero, RN tw2 07:18 Valerie Marie, RN is Primary Nurse. tw2 Administered Medications: No medications were administered Outcome: 07:25 Discharge ordered by . nakia 07:40 Discharged to home ambulatory. tw2 07:40 Condition: stable 07:40 Discharge instructions given to patient, Instructed on discharge instructions, follow up and referral plans. Demonstrated understanding of instructions, follow-up care. 07:41 Patient left the ED. tw2 Signatures: Rodolfo Pruitt PA PA jmm Salyer, Edna es Munoz, Edgar, RN RN Rodrick Dillard MD MD rn Wise, Tara, RN RN tw2 Kenia Cameron 2 Lorri Lucero, CAREN RN bs2 Corrections: (The following items were deleted from the chart) 05:07 05:06 CORONAVIRUS+ drawn and sent. bs2 EDMS
[2021-01-19 07:45] VITALS: BP 129/93; TEMP 97; O2SAT 100
== END 2021-01-19 07:41 | disposition home or self-care (01) ==
LOC: ER 04:20
DX: R50.9 Fever, unspecified (principal); I10 Essential (primary) hypertension; Z20.822 Contact with and (suspected) exposure to COVID-19
CPT/HCPCS: 87804 ×2; 99283; U0003